=== PATIENT | female | born 1950 | race Caucasian/White ===

== ENCOUNTER 2018-04-03 04:30 | Emergency (ER) | payer OTHER ==
[~2018-04-03] VITALS: Ht 165.1 cm; Wt 108.9 kg
[~2018-04-03 04:30] MED LIST: ACET325; ALBU90OI INH; Adult Low Dose81 MG PO; CHOL10002 PO; CODGUAEL PO; LISHYD1012 PO; MECL12.5 PO; Prednisone20 MG PO; SIMV40 PO
[2018-04-03] MEDS ORDERED: MOTION RELIEF25 MG PO (05:08)
[2018-04-03 05:40] LABS: BASOPHILS ABSOLUTE AUTO 0.06 K/mm3 (0.00-0.23); BASOPHILS PERCENT AUTO 1 % (0-2); EOSINOPHILS ABSOLUTE AUTO 0.15 K/mm3 (0.00-0.68); EOSINOPHILS PERCENT AUTO 3 % (0-6); Hematocrit 42.5 % (33.0-51.0); Hemoglobin 13.3 g/dL (11.5-16.0); IMMATURE GRAN ABSOLUTE AUTO 0.02 K/mm3 (0.00-0.10); IMMATURE GRAN PERCENT AUTO 0 % (0-1); LYMPHOCYTES ABSOLUTE AUTO 1.65 K/mm3 (0.84-5.20); LYMPHOCYTES PERCENT AUTO 33 % (21-46); MONOCYTES ABSOLUTE AUTO 0.31 K/mm3 (0.16-1.47); MONOCYTES PERCENT AUTO 6 % (4-13); Mean Corpuscular HGB 27.9 pg (26.0-34.0); Mean Corpuscular HGB Conc 31.3 g/dL (31.5-36.5); Mean Corpuscular Volume 89 fL (80-100); Mean Platelet Volume 10.5 fL (9.1-12.4); NEUTROPHILS ABSOLUTE AUTO 2.84 K/mm3 (1.96-9.15); NEUTROPHILS PERCENT AUTO 56 % (41-73); Platelet Count 208 K/mm3 (150-400); RDW Coefficient Variation 13.7 % (11.7-14.2); RDW Standard Deviation 44.6 fL (35.1-46.3); Red Blood Cell Count 4.76 M/mm3 (3.80-5.20); White Blood Cell Count 5.03 K/mm3 (4.00-11.30)
[2018-04-03 06:08] LABS: Alanine Aminotransfer (ALT/SGP 23 U/L (12-78); Albumin, Blood 3.5 g/dL (3.4-5.0); Albumin/Globulin Ratio 1.1 (0.8-1.8); Alk Phos 100 U/L (50-136); Anion Gap 7 mmol/L (6-16); Aspartate Aminotrans (AST/SGOT 13 U/L (12-37); Bilirubin, Total 0.6 mg/dL (0.1-1.0); Blood Urea Nitrogen 20 mg/dL (8-24); CO2, Blood 27 mmol/L (21-32); Calcium, Blood 8.7 mg/dL (8.5-10.1); Chloride, Blood 110 mmol/L (98-108); Globulin, Blood 3.2 g/dL (2.2-4.0); Glucose, Blood 118 mg/dL (70-99); Potassium, Blood 3.8 mmol/L (3.5-5.5); Sodium, Blood 144 mmol/L (136-145); Total Protein, Blood 6.7 g/dL (6.4-8.2)
[2018-04-03 06:45] LABS: Bun/Creatinine Ratio 22.2 (12.0-20.0); Glomerular Filtration Rate >60 (60-)
== END 2018-04-03 07:30 | disposition home or self-care (01) ==
LOC: ER 04:30
PROVIDERS: Emergency Medicine
DX: H81.10 Benign paroxysmal vertigo, unspecified ear (principal); Z88.2 Allergy status to sulfonamides; Z88.5 Allergy status to narcotic agent; Z88.0 Allergy status to penicillin; Z79.899 Other long term (current) drug therapy; Z87.891 Personal history of nicotine dependence
CPT/HCPCS: 80053; 85025; 93005; 93010; 96360; 99284-25; J7030

== ENCOUNTER 2020-10-03 08:44 | Day surgery (SDC) | payer OTHER ==
[~2020-10-03] VITALS: Ht 162.6 cm; Wt 111.1 kg
[~2020-10-03 08:44] MED LIST changes: +MOTION RELIEF25 MG PO
--- NOTE | 2020-10-03 10:48 | NUR ---
10/03/20 1048 Liz Martinez PT REPOSITIONED TO PRONE.
== END 2020-10-03 11:39 | disposition home or self-care (01) ==
LOC: ORSCSDS 08:44
PROVIDERS: Internal Medicine Gastroenterology
PROC: 0DBL8ZX Excision of Transverse Colon, Via Natural or Artificial Opening Endoscopic, Diagnostic (ICD-10-PCS; principal; 2020-10-03 10:00)
DX: Z12.11 Encounter for screening for malignant neoplasm of colon (principal); Z86.010 Personal history of colon polyps; D12.3 Benign neoplasm of transverse colon; K57.30 Diverticulosis of large intestine without perforation or abscess without bleeding; K64.8 Other hemorrhoids; I10 Essential (primary) hypertension; G47.33 Obstructive sleep apnea (adult) (pediatric); J45.909 Unspecified asthma, uncomplicated; E78.5 Hyperlipidemia, unspecified; E66.01 Morbid (severe) obesity due to excess calories; Z68.41 Body mass index [BMI] 40.0-44.9, adult; Z79.899 Other long term (current) drug therapy
CPT/HCPCS: 88305; J2704

== ENCOUNTER 2024-03-21 06:07 | Day surgery (SDC) | payer OTHER ==
[~2024-03-21] VITALS: Ht 162.6 cm; Wt 106.1 kg
[~2024-03-21 06:07] MED LIST changes: +AMLO5 PO; +Zestril30 MG PO
[2024-03-21] MEDS ORDERED: CeFAZolin Sodium 2,000 MG VIAL ONE (06:13)
[2024-03-21] MEDS ORDERED: Ropivacaine 0.5% HCL/PF 5 MG/ML 30ML Vial ONE (06:16)
[2024-03-21] MEDS ORDERED: Dexmedetomidine HCL 200 MCG / 2 ML ONE (06:16)
[2024-03-21] MEDS ORDERED: Lidocaine HCl 4% 5 ML SDA ONE (06:16)
[2024-03-21] MEDS ORDERED: propofoL 150 ML IV ONE (06:16)
[2024-03-21] MEDS ORDERED: Tranexamic Acid 100 ML IV ONE (06:17)
[2024-03-21] MEDS ORDERED: Acetaminophen 500 MG Tab ONE (06:18)
[2024-03-21] MEDS ORDERED: OxyCODONE HCL 10 MG TABCR ONE (06:19)
[2024-03-21] MEDS ORDERED: EPINEPhrine HCl 1 MG/ML 1ML Amp ONE (06:24)
[2024-03-21] MEDS ORDERED: FentaNYL Citrate 50 MCG/ML 2 ML Injection ONE (06:24)
[2024-03-21] MEDS ORDERED: Dexamethasone Sod Phos 10 MG/ML 1ML VIAL ONE (06:24)
[2024-03-21] MEDS ORDERED: Ketorolac Tromethamine 30mg Vial ONE (06:30)
[2024-03-21] MEDS ORDERED: Ondansetron HCl 2 MG / ML 2ML Vial ONE (06:30)
[2024-03-21] MEDS ORDERED: Metoclopramide HCl 5MG / ML 2ML Vial ONE (06:30)
[2024-03-21] MEDS ORDERED: Lactated Ringer's 1,000 ML IV ONE (06:44)
[2024-03-21] MEDS ORDERED: Chlorhexidine Mouth Care 15 ML UDC MT SCH (06:50)
--- NOTE | 2024-03-21 07:33 | NUR ---
03/21/24 0733 Jennifer Ramirez PT TOLERATED BLOCK WELL. DR. KRISTEL ROTHMAN PERFORMED BLOCK. VS MONITORED, PT ON 4L OF OXYGEN VIA NC. PT'S VSS. PO PAIN MEDICATION GIVEN PRIOR TO BLOCK. SANITIZED NASAL SWAB PERFORMED PER DR'S ORDERS, AND THE ORAL MOUTH RINSE. PT PLEASANT AND COOPERATIVE. REPORT GIVEN TO BRISA Richter RN.
[2024-03-21] MEDS ORDERED: Phenylephrine HCl 100 MCG/ML-NS 10MLSYR (1MG/10ML) ONE ×2 (07:36→08:45)
[2024-03-21] MEDS ORDERED: ePHEDrine Sulfate 50 MG/ML 1ML Injection ONE (08:00)
[2024-03-21] MEDS ORDERED: Esmolol HCL 10 MG/ML 10ML VIAL ONE (08:56)
[2024-03-21] MEDS ORDERED: propofoL 20 ML IV ONE (09:07)
[2024-03-21] MEDS ORDERED: HYDROmorphone HCl/Pf 1MG SYR ONE (09:44)
--- NOTE | 2024-03-21 10:11 | NUR ---
03/21/24 1011 Jeanette Bobby 0956: PT ARRIVES TO PACU ALERT, ON RA. PT'S O2 SAT 91% ON RA. PT PLACED ON 3L/NC, O2 SAT INCREASED TO 95%. OTHER VSS. PT DENIES PAIN/NAUSEA. PT HAS MOVEMENT & FEELING TO L FINGERS. PT STATES SOME NUMBNESS/TINGLING TO L FINGERS. SLING IMMOBILIZER IN PLACE W/ POLAR CARE DRESSING ON L SHOULDER. NO VISIBLE SIGNS OF DISTRESS NOTED.
[2024-03-21 10:27] VITALS: BP 113/59
--- NOTE | 2024-03-21 10:54 | NUR ---
03/21/24 1054 Jeanette Bobby 1038: VERIFIED W/ DR. MONCADA THAT PT DOES NOT NEED 2ND DOSE OF TXA.
== END 2024-03-21 11:38 | disposition home or self-care (01) ==
LOC: ORSCSDS 06:07
PROVIDERS: Orthopaedic Surgery
PROC: 0RRK00Z Replacement of Left Shoulder Joint with Reverse Ball and Socket Synthetic Substitute, Open Approach (ICD-10-PCS; principal; 2024-03-21 07:30)
DX: M19.012 Primary osteoarthritis, left shoulder (principal); I10 Essential (primary) hypertension; E78.5 Hyperlipidemia, unspecified; G47.33 Obstructive sleep apnea (adult) (pediatric); J45.909 Unspecified asthma, uncomplicated; Z87.891 Personal history of nicotine dependence; E66.01 Morbid (severe) obesity due to excess calories; Z68.41 Body mass index [BMI] 40.0-44.9, adult; K21.9 Gastro-esophageal reflux disease without esophagitis; Z79.899 Other long term (current) drug therapy
CPT/HCPCS: 73030; A9270; C1713; C1776; J0171; J0690; J1100; J1171; J1885; J2003; J2371; J2405; J2704; J2765; J2795; J3010